=== PATIENT | male | born 1980 | race African-American/Black ===

== ENCOUNTER 2019-05-20 12:35 | Emergency (ER) | payer OTHER ==
[2019-05-20 12:48] VITALS: BP 151/92; PULSE 81; TEMP 98.2; BMI 34.2
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
== END 2019-05-20 14:41 | disposition home or self-care (01) ==
LOC: FER 12:35
PROC: 2W3GX1Z Immobilization of Right Thumb using Splint (ICD-10-PCS; principal; 2019-05-20)
DX: M25.531 Pain in right wrist (principal)
CPT/HCPCS: 73110-TC-RT-FY; 73130-TC-RT-FY; 99282-25